=== PATIENT | female | born 1985 | race Two or more races ===

== ENCOUNTER → 2025-06-27 | Outpatient (CLI) | payer MEDICAID, SELFPAY ==
--- NOTE | 2025-06-27 13:42 | XR_ITS ---
Examination: Wrist, right 3 views Technique: Wrist AP, oblique, lateral 3 views Date and time of exam: June 27, 2025, 1416 hours INDICATION: Right wrist pain beginning 5 years ago. FINDINGS: Mild osteopenia. No fracture or dislocation. No avascular necrosis. No erosive or other significant arthritic change. IMPRESSION: No erosive or other significant arthritic change
--- NOTE | 2025-06-27 13:42 | XR_ITS ---
Examination: Hand, right 3 views Technique: Hand AP, oblique, lateral 3 views Date and time of exam: June 27, 2025, 1424 hours INDICATIONS: Right hand pain 5 years. FINDINGS: Mild juxta articular bone demineralization. No fracture or dislocation. No erosive or other significant arthritic change IMPRESSION: No erosive or other significant arthritic change
== END | disposition home or self-care (01) ==
PROVIDERS: Referring Provider Nurse Practitioner Gerontology; Visit Provider Nurse Practitioner Gerontology
DX: M79.641 Pain in right hand (principal); M25.531 Pain in right wrist
CPT/HCPCS: 73110; 73130